=== PATIENT | female | born 1985 | race Two or more races ===

== ENCOUNTER 2017-12-26 18:55 | Emergency (ER) | payer BC ==
[~2017-12-26] VITALS: Ht 170.2 cm; Wt 94.8 kg
[2017-12-26 19:31] LABS: Urine Bacteria NONE SEEN /hpf (None Seen); Urine Blood Negative /uL (Negative); Urine Mucus FEW (None Seen); Urine Specific Gravity 1.022 (1.001-1.035); Urine WBC 1 /hpf (0 - 5)
[2017-12-26 19:44] LABS: Basophils # (auto) 0.1 uL; Basophils % (auto) 0.8 % (0.0-2.0); Eosinophils # (auto) 0.1 uL; Hemoglobin 12.3 g/dL (12.2-16.2); Mean Corpuscular Hemoglobin 24.2 pg (28.0-32.0); Monocytes # (auto) 0.6 uL
[2017-12-26 19:46] LABS: Eosinophils % (auto) 1.3 % (0.0-7.0); Hematocrit 38.9 % (36.0-46.0); Lymphocytes # (auto) 2.7 uL; Lymphocytes % (auto) 37.2 % (10.0-50.0); Mean Corpuscular Hgb Conc. 31.6 g/dL (32.0-36.0); Mean Corpuscular Volume 76.4 fL (80.0-100.0); Neutrophils # (auto) 3.8 uL; Neutrophils % (auto) 52.7 % (37.0-80.0); Platelet Count (auto) 344 10^3/uL (140-450); Red Blood Cells 5.09 10^6/uL (4.0-5.20); Red Cell Distribution Width 18.1 % (11.8-14.3); White Blood Cell 7.2 10^3/uL (4.4-10.8)
[2017-12-26 19:59] LABS: BUN/Creatinine Ratio 11.3; Calcium 8.4 mg/dL (8.5-10.1); Potassium 3.4 mmol/L (3.5-5.1)
[2017-12-26] MEDS ORDERED: KETOROLAC TROMETH 30 MG/ML 1ML VIAL IV ONE (20:15)
[2017-12-26 22:11] VITALS: BP 102/58
== END 2017-12-26 22:56 | disposition home or self-care (01) ==
LOC: ER 19:12
DX: S33.5XXA Sprain of ligaments of lumbar spine, initial encounter (principal); M54.16 Radiculopathy, lumbar region; X50.1XXA Overexertion from prolonged static or awkward postures, initial encounter; Y93.89 Activity, other specified; Y99.8 Other external cause status; Y92.89 Other specified places as the place of occurrence of the external cause
CPT/HCPCS: 36415; 74176; 80048; 81001; 81025; 85025; 96374; 99285; J1885